=== PATIENT | male | born 1960 | race American Indian/Alaskan Native ===

== ENCOUNTER 2020-07-17 11:55 | Emergency (ER) | payer SELFPAY ==
--- NOTE | 2020-07-17 12:08 | Event Note ---
ED Screening Note Date of service: 07/17/20 Time: 12:07 ED Screening Note: Pt with hx of HTN and DM, non compliance with medications x 4 yrs. Double vision x 2 days Elevated BP reading at vision center today, was told to come to ED. This initial assessment/diagnostic orders/clinical plan/treatment(s) is/are subject to change based on patients health status, clinical progression and re- assessment by fellow clinical providers in the ED. Further treatment and workup at subsequent clinical providers discretion. Patient/guardian urged not to elope from the ED as their condition may be serious if not clinically assessed and managed. Initial orders include: CT head, Labs, EKG
[2020-07-17] MEDS ORDERED: cloNIDine 0.1 MG TAB PO ONE (12:32)
[2020-07-17] MEDS ORDERED: INSULIN REGULAR, HUMAN 100 UNITS/1 ML IV ONE (12:37)
--- NOTE | 2020-07-17 12:37 | Emergency Department Report ---
ED Eye Problem HPI - General Chief complaint: High BP Stated complaint: ELEVATED BLOOD PRESSURE Time Seen by Provider: 07/17/20 12:10 Source: patient Mode of arrival: Ambulatory Limitations: No Limitations - History of Present Illness Initial comments: 60-year-old male with a past medical history of gdj-ozmjrns-hrakrvzib diabetes and hypertension presents to the hospital with complaints of double vision for the last 2 days. Patient states he has double vision when looking forward and looking to the right. Double vision is improved when the eye is covered. Patient does not wear corrective lenses denies eye pain or trauma. Patient complains of intermittent headache around the eyes for the last several days and but is currently pain-free. He denies nausea, vomiting, fever, focal numbness, focal weakness, or unsteady gait. Patient has been off of blood pressure and diabetes medicines for at least 3 to 4 years has not been monitoring his blood pressure or glucose since discontinued medication. Patient went to her corn husker prior to arrival and was sent to the ER for evaluation due to elevated blood pressure and eye examination findings. I called the corn husker Hanh Castro at [phone] who states that her eye exam yielded normal intraocular pressures, bilateral retinal hemorrhages, and a 6th nerve cranial palsy. - Related Data Previous Rx's Medication Instructions Recorded Last Taken Type Aspirin [Adult Aspirin] 81 mg PO DAILY #30 tablet. 07/17/20 Unknown Rx amLODIPine 10 mg PO DAILY #30 tab 07/17/20 Unknown Rx metFORMIN [Glucophage] 500 mg PO BID #60 tablet 07/17/20 Unknown Rx Allergies Allergy/AdvReac Type Severity Reaction Status Date / Time No Known Allergies Allergy Unverified 07/17/20 12:03 ED Review of Systems ROS: Stated complaint: ELEVATED BLOOD PRESSURE Other details as noted in HPI Comment: All other systems reviewed and negative ED Past Medical Hx - Past Medical History Previous Medical History?: Yes Hx Hypertension: Yes Hx Diabetes: Yes - Surgical History Past Surgical History?: No - Social History Smoking Status: Never Smoker Substance Use Type: Alcohol - Medications Home Medications: Home Medications Medication Instructions Recorded Confirmed Last Taken Type Aspirin [Adult Aspirin] 81 mg PO DAILY #30 tablet. 07/17/20 Unknown Rx amLODIPine 10 mg PO DAILY #30 tab 07/17/20 Unknown Rx metFORMIN [Glucophage] 500 mg PO BID #60 tablet 07/17/20 Unknown Rx ED Physical Exam - General Limitations: No Limitations - Other Other exam information: General: No acute distress Head: Atraumatic Eyes: normal appearance without conjunctival injection. No photophobia. Pupils equal reactive to light. Right eye lateral movement limited however, other e xtraocular movements intact. Lateral visual sepulveda grossly intact. Visual acuity left eye: 20/20, right eye 20/25, bilateral eye: 20/25 ENT: Moist mucous membranes Neck: Normal appearance, no midline tenderness Chest: Clear to auscultation bilaterally CV: Regular rate and rhythm Abdomen: Soft, normal bowel sounds, nontender, nondistended, no rebound or guarding Back: Normal inspection Extremity: Normal inspection, full range of motion Neuro: Alert O x 3, no facial asymmetry, speech clear, no gross motor sensory deficit, wsgttz-lyli-ezyvaw function intact, gait steady Psych: Appropriate behavior Skin: No rash ED Course Vital Signs 07/17/20 07/17/20 07/17/20 12:01 12:05 12:22 Temperature 97.5 F L 97.5 F L Pulse Rate 67 69 64 Respiratory 18 18 18 Rate Blood Pressure 183/114 183/114 Blood Pressure [Left] O2 Sat by Pulse 99 98 95 Oximetry 07/17/20 07/17/20 07/17/20 13:06 13:45 14:01 Temperature Pulse Rate 64 63 63 Respiratory 19 15 11 L Rate Blood Pressure 142/92 142/92 Blood Pressure 159/102 [Left] O2 Sat by Pulse 98 97 94 Oximetry 07/17/20 14:15 Temperature Pulse Rate 55 L Respiratory 16 Rate Blood Pressure 138/93 Blood Pressure [Left] O2 Sat by Pulse 97 Oximetry - Consultations Consultation #1: 07/17/20 14:20 as per neurology recommendation Dr. Silvia Joaquin (please refer to his complete note) # Plan Thrombolytic/Intervention: NOT IV Alteplase or IA Intervention Alteplase/Intraarterial Exclusion: IV alteplase and IA intervention considered but not recommended as this patient's symptoms are not clinically consistent with an assumed diagnosis of stroke Blood Pressure Target: SBP < 160 Medication: ASA 325 then 81 daily Would start on oral anti-hypertensive, patient does not currently have a PCP Consider starting oral medication for DM given hyperglycemia to 300s Additional Recommendations: MRI brain as outpatient Will need neuro-ophthalmology follow-up in approximately 4 weeks to evaluate for prisms Disposition: observation Disposition as per verbal conversation patient is to be discharged home with outpatient follow-up with neuro-ophthalmology ED Medical Decision Making - Lab Data Result diagrams: 07/17/20 12:23 07/17/20 12:23 Lab Results 07/17/20 07/17/20 07/17/20 Range/Units 12:14 12:23 12:23 WBC 6.6 (4.5-11.0) K/mm3 RBC 4.71 (3.65-5.03) M/mm3 Hgb 14.4 (11.8-15.2) gm/dl Hct 41.9 (35.5-45.6) % MCV 89 (84-94) fl MCH 31 (28-32) pg MCHC 35 H (32-34) % RDW 12.9 L (13.2-15.2) % Plt Count 193 (140-440) K/mm3 Lymph % (Auto) 20.5 (13.4-35.0) % [place] % (Auto) 6.8 (0.0-7.3) % Eos % (Auto) 3.6 (0.0-4.3) % Baso % (Auto) 0.6 (0.0-1.8) % Lymph # (Auto) 1.3 (1.2-5.4) K/mm3 [place] # (Auto) 0.4 (0.0-0.8) K/mm3 Eos # (Auto) 0.2 (0.0-0.4) K/mm3 Baso # (Auto) 0.0 (0.0-0.1) K/mm3 Seg Neutrophils % 68.5 (40.0-70.0) % Seg Neutrophils # 4.5 (1.8-7.7) K/mm3 Sodium 136 L (137-145) mmol/L Potassium 4.4 (3.6-5.0) mmol/L Chloride 98.3 (98-107) mmol/L Carbon Dioxide 30 (22-30) mmol/L Anion Gap 12 mmol/L BUN 11 (9-20) mg/dL Creatinine 0.9 (0.8-1.3) mg/dL Estimated GFR > 60 ml/min BUN/Creatinine Ratio 12 % Glucose 304 H (75-100) mg/dL POC Glucose 288 H (70-105) mg/dL Hemoglobin A1c (4-6) % Calcium 9.4 (8.4-10.2) mg/dL Total Bilirubin 0.60 (0.1-1.2) mg/dL AST 14 (5-40) units/L ALT 13 (7-56) units/L Alkaline Phosphatase 80 (35-129) units/L Total Protein 7.6 (6.3-8.2) g/dL Albumin 4.4 (3.9-5) g/dL Albumin/Globulin Ratio 1.4 % 07/17/20 07/17/20 07/17/20 Range/Units 13:08 13:13 14:02 WBC (4.5-11.0) K/mm3 RBC (3.65-5.03) M/mm3 Hgb (11.8-15.2) gm/dl Hct (35.5-45.6) % MCV (84-94) fl MCH (28-32) pg MCHC (32-34) % RDW (13.2-15.2) % Plt Count (140-440) K/mm3 Lymph % (Auto) (13.4-35.0) % [place] % (Auto) (0.0-7.3) % Eos % (Auto) (0.0-4.3) % Baso % (Auto) (0.0-1.8) % Lymph # (Auto) (1.2-5.4) K/mm3 [place] # (Auto) (0.0-0.8) K/mm3 Eos # (Auto) (0.0-0.4) K/mm3 Baso # (Auto) (0.0-0.1) K/mm3 Seg Neutrophils % (40.0-70.0) % Seg Neutrophils # (1.8-7.7) K/mm3 Sodium (137-145) mmol/L Potassium (3.6-5.0) mmol/L Chloride (98-107) mmol/L Carbon Dioxide (22-30) mmol/L Anion Gap mmol/L BUN (9-20) mg/dL Creatinine (0.8-1.3) mg/dL Estimated GFR ml/min BUN/Creatinine Ratio % Glucose (75-100) mg/dL POC Glucose 206 H 149 H (70-105) mg/dL Hemoglobin A1c 10.1 H (4-6) % Calcium (8.4-10.2) mg/dL Total Bilirubin (0.1-1.2) mg/dL AST (5-40) units/L ALT (7-56) units/L Alkaline Phosphatase (35-129) units/L Total Protein (6.3-8.2) g/dL Albumin (3.9-5) g/dL Albumin/Globulin Ratio % - Radiology Data Radiology results: report reviewed CT head/brain wo con INDICATION: MAIN. TECHNIQUE: Routine CT head without contrast. All CT scans at this location are performed using CT dose reduction for ALARA by means of automated exposure control. COMPARISON: None. FINDINGS: BRAIN / INTRACRANIAL CONTENTS: No acute hemorrhage, mass effect, midline shift, or hydrocephalus. No appreciable acute large territorial or lacunar infarct. No chronic infarct or focal atrophy. Normal brain volume and ventricular/sulcal size for age. No extra axial blood or fluid collection. ORBITS: No significant abnormality of visualized orbits. SINUSES / MASTOIDS: Mild mucosal thickening in the inferior left maxillary antrum, frontal, and sphenoid sinuses, as well as patchy opacification of the ethmoid sinuses. Mastoid air cells are clear. ADDITIONAL FINDINGS: None. IMPRESSION: 1. No acute intracranial abnormality. - Medical Decision Making 60-year-old male presents to the hospital complaining of double vision is noted to have a right eye lateral rectus palsy. Is also reported by the corn husker that patient has retinal hemorrhages with normal intraocular pressure. Symptoms likely result of longstanding untreated hypertension and diabetes. Patient does not have any other neurologic findings and has a normal CT head with no current headache or pain. Case discussed with neurologist who recommends outpatient referral with neuro-patient assessment coordinator, aspirin and patient will be started on hypertensive and diabetes medication. Patient was treated in the ER for elevated blood pressure and hyperglycemia with insulin and clonidine with improvement prior to discharge. Outpatient ophthalmology referral to [facility] provided as well as additional specialist and primary care doctor referrals. Critical Care Time: No Critical care attestation.: If time is entered above; I have spent that time in minutes in the direct care of this critically ill patient, excluding procedure time. ED Disposition Clinical Impression: Lateral rectus palsy, Uncontrolled hypertension, Uncontrolled diabetes mellitus, Noncompliance with medication regimen Disposition: TO HOME OR SELFCARE Is pt being admited?: No Condition: Stable Instructions: Hypertension (ED), Diabetes Mellitus Type 2 in Adults (ED) Additional Instructions: Take the medication as prescribed. You will need to follow with several provi ders including a primary care doctor for management of your high blood pressure and diabetes, an patient assessment coordinator, and a neuro-patient assessment coordinator regarding your ocular/eye symptoms. Please call the numbers provided. Return if symptoms worsen as indicated by your discharge instructions. Prescriptions: Aspirin [Adult Aspirin] 81 mg PO DAILY #30 tablet. amLODIPine 10 mg PO DAILY #30 tab metFORMIN [Glucophage] 500 mg PO BID #60 tablet Referrals: PRIMARY CARE, [Primary Care Provider] - 3-5 Days Neuro-patient assessment coordinator, [Other] - 3-5 Days ([facility] neuro-ophthalmology Call the number above to request schedule with a neuro-patient assessment coordinator as per n eurologist recommendation ) KADEEM LOPEZ MD [Staff Physician] - 3-5 Days (Operations Specialist) PREMA RUANO MD [Staff Physician] - 3-5 Days (Primary care doctor) [facility] [Provider Group] - 3-5 Days (Primary care clinic) Time of Disposition: 14:36 - Assessment Assessment Interval: Baseline - Level of Consciousness 1a. Level of Consciousness: alert/keenly responsive - LOC Questions 1b. LOC Questions: answers both correctly - LOC Command 1c. LOC Commands: performs tasks correctly - Best Gaze 2. Best Gaze: partial gaze palsy - Visual 3. Visual: no visual loss - Facial Palsy 4. Facial Palsy: normal symmetrical movement - Motor Arm 5a. Motor Arm Left: no drift 5b. Motor Arm Right: no drift - Motor Leg 6a. Motor Leg Left: no drift 6b. Motor Leg Right: no drift - Limb Ataxia 7. Limb Ataxia: absent - Sensory 8. Sensory: normal - Best Language 9. Best Language: no aphasia - Dysarthria 10. Dysarthria: normal - Extinction and Inattention 11. Extinction/Inattention: no abnormality - Scoring Total Score: 1 Stroke Severity: Minor Stroke
[2020-07-17 12:58] LABS: Basophils % (Auto) 0.6 % (0.0-1.8); Eosinophils # (Auto) 0.2 K/mm3 (0.0-0.4); Eosinophils % (Auto) 3.6 % (0.0-4.3); Hematocrit 41.9 % (35.5-45.6); Hemoglobin 14.4 gm/dl (11.8-15.2); Lymphocytes # (Auto) 1.3 K/mm3 (1.2-5.4); Lymphocytes % (Auto) 20.5 % (13.4-35.0); Mean Corpuscular HGB Conc 35 % (32-34); Mean Corpuscular Volume 89 fl (84-94); Monocytes # (Auto) 0.4 K/mm3 (0.0-0.8); Monocytes % (Auto) 6.8 % (0.0-7.3); Platelet Count 193 K/mm3 (140-440); Red Blood Count 4.71 M/mm3 (3.65-5.03); Red Cell Distribution Width 12.9 % (13.2-15.2)
--- NOTE | 2020-07-17 13:03 | Cat Scan Report ---
CT head/brain wo con INDICATION: MAIN. TECHNIQUE: Routine CT head without contrast. All CT scans at this location are performed using CT dos e reduction for ALARA by means of automated exposure control. COMPARISON: None. FINDINGS: BRAIN / INTRACRANIAL CONTENTS: No acute hemorrhage, mass effect, midline shift, or hydrocephalus. No appreciable acute large territorial or lacunar infarct. No chronic infarct or focal atrophy. Normal b rain volume and ventricular/sulcal size for age. No extra axial blood or fluid collection. ORBITS: No significant abnormality of visualized orbits. SINUSES / MASTOIDS: Mild mucosal thickening in the inferior left maxillary antrum, frontal, and sphen oid sinuses, as well as patchy opacification of the ethmoid sinuses. Mastoid air cells are clear. ADDITIONAL FINDINGS: None. IMPRESSION: 1. No acute intracranial abnormality. Signer Name: Jose Maria Ritchie MD Signed: 07/17/2020 12:59 PM Workstation Name: [id number]
[2020-07-17 13:05] LABS: Alanine Aminotransferase 13 units/L (7-56); Albumin 4.4 g/dL (3.9-5); BUN/Creatinine Ratio 12; Blood Urea Nitrogen 11 mg/dL (9-20); Calcium 9.4 mg/dL (8.4-10.2); Hemolysis Index 11
[2020-07-17] MEDS ORDERED: ASPIRIN 325 MG TAB PO ONE (13:56)
--- NOTE | 2020-07-17 13:57 | Consultation ---
History of Present Illness History of present illness: [facility] Consult Note # Demographics Consult Type: 0-6 hour Stroke First Name: Lew Last Name: Eliecer Date of : 1960 Age: 60 Gender: male Time of initial page (): 07-17-2020, 11:27:00 Time of return call ([place] ): 07-17-2020, 11:27:00 # HPI Chief Complaint: double vision Additional History: 60M with HTN, DM sent in by collections curator for complaints of double vision x2 days. Mostly when looks forward and to the right. Looks like a 6th nerve palsy on right side. Off medications for HTN/DM x3-4 years. Also with some retinal hemorrhages. CT head unremarkable. Neuro exam in ED normal except for right 6th palsy. BP 183/114. # Scores Time of exam and NIHSS ([place] ): 07-17-2020, 11:46:00 Level of Consciousness 1a: [0] = Alert; keenly responsive LOC Questions 1b: [0] = Answers both questions correctly LOC Commands 1c: [0] = Performs both tasks correctly Best Gaze 2: [1] = Partial gaze palsy Visual 3: [0] = No visual loss Facial Palsy 4: [0] = Normal symmetrical movements Motor Arm Left 5a: [0] = No drift Motor Arm Right 5b: [0] = No drift Motor Leg Left 6a: [0] = No drift Motor Leg Right 6b: [0] = No drift Limb Ataxia 7: [0] = Absent Sensory 8: [0] = Normal Best Language 9: [0] = No aphasia Dysarthria 10: [0] = Normal Extinction and Inattention 11: [0] = No abnormality NIHSS Total: 1 null: [0] = No Symptoms Modified Jaci Scale total: 0 # Data Glucose: hyperglycemia Time Head CT personally ready by me (): 07-17-2020, 11:46:[address]: per radiologist read, no bleed # Assessment 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 HTN DM # Plan Thrombolytic/Intervention: NOT IV Alteplase or IA Intervention Alteplase/Intraarterial Exclusion: IV alteplase and IA intervention considered but not recommended as this patient's symptoms are not clinically consistent with an assumed diagnosis of stroke Blood Pressure Target: SBP < 160 Medication: ASA 325 then 81 daily Would start on oral anti-hypertensive, patient does not currently have a PCP Consider starting oral medication for DM given hyperglycemia to 300s Additional Recommendations: MRI brain as outpatient Will need neuro-ophthalmology follow-up in approximately 4 weeks to evaluate for prisms Disposition: observation # Logistics Telemedicine: Interactive 2 way audio and visual telecommunication technology was utilized during this visit Medications and Allergies Allergies Allergy/AdvReac Type Severity Reaction Status Date / Time No Known Allergies Allergy Unverified 07/17/20 12:03 Physical Examination - Vital Signs Vital Signs: Vital Signs Temp Pulse Resp BP Pulse Ox 97.5 F L 67 18 183/114 99 07/17/20 12:01 07/17/20 12:01 07/17/20 12:01 07/17/20 12:01 07/17/20 12:01 Results - Laboratory Findings CBC and BMP: 07/17/20 12:23 07/17/20 12:23 Abnormal Lab Findings: Abnormal Labs 07/17/20 07/17/20 07/17/20 12:14 12:23 12:23 MCHC 35 H RDW 12.9 L Sodium 136 L Glucose 304 H POC Glucose 288 H Hemoglobin A1c 07/17/20 07/17/20 13:08 13:13 MCHC RDW Sodium Glucose POC Glucose 206 H Hemoglobin A1c 10.1 H
[2020-07-17 14:24] VITALS: BP 138/93
== END 2020-07-17 15:10 | disposition home or self-care (01) ==
LOC: ED 11:55
DX: H49.21 Sixth [abducent] nerve palsy, right eye (principal); I10 Essential (primary) hypertension; E11.9 Type 2 diabetes mellitus without complications; Z91.14 Patient's other noncompliance with medication regimen; Z79.899 Other long term (current) drug therapy
CPT/HCPCS: 36415; 70450; 80053; 82962; 83036; 85025; 93005; 96374; J1815